=== PATIENT | female | born 1985 | race Caucasian/White ===

== ENCOUNTER → 2018-11-21 | Outpatient (CLI) | payer BC ==
--- NOTE | 2018-11-21 15:05 | Diagnostic Imaging Report ---
EXAMINATION: Thyroid ultrasound. CLINICAL HISTORY: Hypercalcemia and primary hyperparathyroidism COMPARISON: None. . DISCUSSION: Transverse and longitudinal images of the thyroid were obtained utilizing grayscale and color Doppler modalities. The right thyroid lobe measures 5.7 x 1.7 x 2.2 cm and shows normal echogenicity. No nodules are seen. The left thyroid lobe measures 5.5 x 2 x 1.9 cm and shows normal echogenicity. Along the posterior aspect of the interpolar region of the left lobe of the thyroid there is a well-circumscribed predominantly hypoechoic nodule measuring 2.1 x 1.1 x 1.2 cm, solid (2 points), hypoechoic (2.), Wider than tall (0 point), smoothly marginated (0 point), without echogenic foci (0 point) (TR 4). The thyroid isthmus measures 0.3 cm and shows normal echogenicity. No nodules are seen. There is no adenopathy. IMPRESSION: 2.1 cm nodule along the posterior margin of the thyroid may represent a functioning parathyroid adenoma in the clinical setting of primary hyperparathyroidism.. Further evaluation with nuclear medicine parathyroid scan had been requested at the time of this dictation. If this nodule is shown to be nonfunctioning on nuclear medicine scan, fine-needle aspiration should be considered based on ACR TIRADS criteria. Signed by: Dr. Scott Cedillo M.D. on 11/21/2018 3:02 PM
--- NOTE | 2018-11-21 19:11 | Diagnostic Imaging Report ---
Parathyroid Scan with SPECT Reason for exam: Hyperparathyroidism; hypercalcemia Radiopharmaceutical: Tc-99m sestamibi 27.5 mCi After intravenous administration of the radiopharmaceutical, immediate and 2-hour planar images of the neck and upper chest were obtained. Tomographic images of the neck and upper chest were obtained following the initial planar images. The initial planar images show focal increased tracer activity in the mid aspect of the left thyroid lobe. The tomographic images show this focus is immediately posterior to the left thyroid lobe. On the delayed planar images, this focus of increased tracer activity persists. The thyroid washes out adequately. No other focal abnormalities are identified. Impression: Single enlarged hypermetabolic parathyroid gland is identified immediately posterior to the mid aspect of the left thyroid lobe. Signed by: Dr. Sakina Arshad M.D. on 11/21/2018 7:08 PM
== END ==
LOC: NM 11:42
PROVIDERS: ATTEND Internal Medicine
DX: E21.0 Primary hyperparathyroidism (principal); E83.52 Hypercalcemia
CPT/HCPCS: 76536; 78071; 81025; A9500